=== PATIENT | female | born 1960 | race Caucasian/White ===

== ENCOUNTER 2016-12-19 19:33 | Observation (INO) | payer OTHER ==
[~2016-12-19] VITALS: Ht 165.1 cm; Wt 75.0 kg
[~2016-12-19 19:33] MED LIST: IBUP600T26 PO; PERC5TAB12 PO; ZOFR4TAB3 SL
[2016-12-19 19:37] VITALS: BP 209/123; PULSE 93; RESP 18; TEMP 98.4; O2SAT 99
--- NOTE | 2016-12-19 19:42 | PD ---
Physical Exam Time Seen by Provider: 19:40 Narrative 56 y/o female here for evaluation of jaw tightness, chest tightness 30 min lpta at work. She checked her BP and noted hypertension. Vital signs reviewed. Seen at triage desk. Awaiting bed placement. Data Data Last Documented VS Vital Signs Date Time Temp Pulse Resp B/P Pulse Ox O2 Delivery O2 Flow Rate FiO2 12/19/16 19:37 98.4 93 18 209/123 99 Room Air [facility] Medical Record Reviewed: Yes Supervised Visit with KIA: No Troy Ratliff Dec 19, 2016 19:42
[2016-12-19 20:40] VITALS: O2SAT 96
[2016-12-19] MEDS ORDERED: CHOL100025 CHEW (20:40)
[2016-12-19] MEDS ORDERED: [UNRECOGNIZED DRUG - CODE] (20:40)
[2016-12-19] MEDS ORDERED: OMEG300C5 (20:40)
[2016-12-19] MEDS ORDERED: ASPIRIN 325 MG TAB PO ONE (20:45)
[2016-12-19] MEDS ORDERED: NITROGLYCERIN 0.4 MG SL 25 TABS/BTL SL ONE (20:45)
[2016-12-19] MEDS ORDERED: SODIUM CHLORIDE 0.9% FLUSH 10 ML FLUSH IVF PRN (20:45)
--- NOTE | 2016-12-19 20:53 | PD ---
HPI Chief Complaint: Chest Pain Time Seen by Provider: 20:50 Travel History International Travel<30 days: No Contact w/Intl Traveler<30days: No Traveled to known affect area: No History of Present Illness HPI 56-year-old female that presents to the ED for evaluation of chest pressure and jaw pain. Per patient she's had this for over 30 minutes before coming. She denies any history of heart disease. No history of any medical issues. She states that nothing seems to make it better or worse. Per patient she went to check her blood pressure and it was high for her. She states that the pain for the most part started on the left jaw and he wasn't severe but enough for her to notice it. Per patient the discomfort from the chest is more like a pressure and a sense of heaviness than actual pain. Per patient the discomfort is 3 out of 10. Per patient at the moment the pain seems to have been improving but she continues to have the pressure sensation of heaviness. She denies abdominal pain. No nausea or vomiting. No history of heart disease in the family. She does have a history of hypertension in the family. No high cholesterol. She did use to smoke. No recent travel. No estrogen use. Allergies to Biaxin and tetracycline. PFSH Past Medical History Diminished Hearing: No Kidney Stones: Yes Menopausal: Yes Past Surgical History Genitourinary Surgery: Yes (RENAL STENT, LITHOTRIPSY 2010) Other Surgery: Yes (PARATHYROID) Social History Alcohol Use: Yes Tobacco Use: No (quit 14 years ) Substance Use: No Allergies-Medications (Allergen,Severity, Reaction): Coded Allergies: Biaxin (Verified Allergy, Severe, THRUSH/MOUTH SORES, 12/19/16) Tetracycline (Verified Allergy, Severe, THRUSH/MOUTH SORES, 12/19/16) Reported Meds & Prescriptions Reported Meds & Active Scripts Active Reported Collagen Hydrolysate (Collagen Hydrolysate (Bovine)) 1 Pow Pow Fish Oil ([place]-3 Fatty Acids) 300 Mg Capsule 900 Vitamin D3 (Cholecalciferol) 1,000 Unit Chew 1,000 Units CHEW DAILY Review of Systems Except as stated in HPI: all other systems reviewed are Neg Physical Exam Narrative GENERAL: SKIN: Warm and dry. HEAD: Atraumatic. Normocephalic. EYES: Pupils equal and round. No scleral icterus. No injection or drainage. ENT: No nasal bleeding or discharge. Mucous membranes pink and moist. Tongue is midline. No uvula deviation. NECK: Trachea midline. No JVD. CARDIOVASCULAR: Regular rate and rhythm. No murmurs, S3, S4. No chest pain reproducible with touch. RESPIRATORY: No accessory muscle use. Clear to auscultation. Breath sounds equal bilaterally. GASTROINTESTINAL: Abdomen soft, non-tender, nondistended. Hepatic and splenic margins not palpable. MUSCULOSKELETAL: Extremities without clubbing, cyanosis, or edema. No obvious deformities. Full range of motion of the upper and lower extremities bilaterally. 2+ pulses bilaterally. NEUROLOGICAL: Awake and alert. No obvious cranial nerve deficits. Motor grossly within normal limits. Five out of 5 muscle strength in the arms and legs. Normal speech. PSYCHIATRIC: Appropriate mood and affect; insight and judgment normal. Data Data Last Documented VS Vital Signs Date Time Temp Pulse Resp B/P Pulse Ox O2 Delivery O2 Flow Rate FiO2 12/19/16 21:04 90 16 134/87 97 Room Air 12/19/16 19:37 98.4 Orders Electrocardiogram (12/19/16 ) Electrocardiogram (12/19/16 20:38) Basic Metabolic Panel (Bmp) (12/19/16 20:38) Ckmb (Isoenzyme) Profile (12/19/16 20:38) Complete Blood Count With Diff (12/19/16 20:38) Magnesium (Mg) (12/19/16 20:38) Prothrombin Time / Inr (Pt) (12/19/16 20:38) Act Partial Throm Time (Ptt) (12/19/16 20:38) Troponin I (12/19/16 20:38) Lipase (12/19/16 20:38) Chest, Single Ap (12/19/16 20:38) Ecg Monitoring (12/19/16 20:38) Bilateral Bp Monitoring (12/19/16 20:38) Iv Access Insert/Monitor (12/19/16 20:38) Oximetry (12/19/16 20:38) Oxygen Administration (12/19/16 20:38) Aspirin (Aspirin) (12/19/16 20:45) Sodium Chloride 0.9% Flush (Ns Flush) (12/19/16 20:45) Nitroglycerin Sl (Nitrostat Sl) (12/19/16 20:45) Admit Order (Ed Use Only) (12/19/16 22:18) Activity Bed Rest With Brp (12/19/16 22:19) Vital Signs (Adult) Q4H (12/19/16 22:19) Cardiac Rhythm .As Directed (12/19/16 22:19) Notify Dr: Other .PRN (12/19/16 22:19) Notify DrRah Parameters (12/19/16 22:19) Resp Oxygen Nasal Cannula (12/19/16 ) Ckmb (Isoenzyme) Profile (12/19/16 23:49) Ckmb (Isoenzyme) Profile (12/20/16 02:49) Troponin I (12/19/16 23:49) Troponin I (12/20/16 02:49) Electrocardiogram (12/19/16 23:49) Electrocardiogram (12/20/16 02:49) ^ Obtain (12/19/16 22:19) Sodium Chloride 0.9% Flush (Ns Flush) (12/19/16 22:30) Sodium Chloride 0.9% Flush (Ns Flush) (12/20/16 09:00) Acetaminophen (Tylenol) (12/19/16 22:30) Tunnel Heading Inspector / Telemetry KELSI.Q8H (12/19/16 22:19) Labs Laboratory Tests Test 12/19/16 20:49 White Blood Count 6.2 TH/MM3 Red Blood Count 4.55 MIL/MM3 Hemoglobin 13.7 GM/DL Hematocrit 41.7 % Mean Corpuscular Volume 91.6 FL Mean Corpuscular Hemoglobin 30.1 PG Mean Corpuscular Hemoglobin 32.8 % Concent Red Cell Distribution Width 14.0 % Platelet Count 218 TH/MM3 Mean Platelet Volume 8.5 FL Neutrophils (%) (Auto) 44.1 % Lymphocytes (%) (Auto) 46.8 % Monocytes (%) (Auto) 7.3 % Eosinophils (%) (Auto) 1.2 % Basophils (%) (Auto) 0.6 % Neutrophils # (Auto) 2.7 TH/MM3 Lymphocytes # (Auto) 2.9 TH/MM3 Monocytes # (Auto) 0.5 TH/MM3 Eosinophils # (Auto) 0.1 TH/MM3 Basophils # (Auto) 0.0 TH/MM3 CBC Comment DIFF FINAL Differential Comment Prothrombin Time 10.6 SEC Prothromb Time International 1.0 RATIO Ratio Activated Partial 25.9 SEC Thromboplast Time Sodium Level 139 MEQ/L Potassium Level 3.9 MEQ/L Chloride Level 107 MEQ/L Carbon Dioxide Level 23.9 MEQ/L Anion Gap 8 MEQ/L Blood Urea Nitrogen 21 MG/DL Creatinine 0.83 MG/DL Estimat Glomerular Filtration 71 ML/MIN Rate Random Glucose 90 MG/DL Calcium Level 9.2 MG/DL Magnesium Level 2.4 MG/DL Total Creatine Kinase 69 U/L Troponin I LESS THAN 0.02 NG/ML Lipase 145 U/L MDM Medical Decision Making Medical Screen Exam Complete: Yes Emergency Medical Condition: Yes Medical Record Reviewed: Yes Interpretation(s) CBC & BMP Diagram 12/19/16 20:49 EKG shows sinus rhythm with no sign of acute ischemia or arrhythmia. Read by me and attending. Troponin and CK-MB negative. Lipase negative. Chest x-ray negative for acute disease. Differential Diagnosis Chest pain versus atypical chest pain versus ACS versus pancreatitis versus angina versus hypertensive emergency Narrative Course 56-year-old female that presents to the ED for evaluation of chest pain. Patient was properly examined and was found to have signs and symptoms concerning for cardiac chest pain. Labs and imaging were ordered. Initial EKG shows sinus rhythm with no sign of acute ischemia or arrhythmia rhythm by me and attending. Patient will be given aspirin as well as nitroglycerin. Labs and imaging showed no sign of acute disease. Patient was reassured. Patient did have relief with nitroglycerin. Patient does have risk factors including age and hypertension. At this time I recommend admission for chest pain center. Patient agrees with this plan. Patient was admitted to the chest pain center. Diagnosis Primary Impression: Chest pain in adult Admitting Information Admitting Physician Requests: Observation Derrek Quintanilla Dec 19, 2016 20:53
[2016-12-19 21:04] VITALS: BP 134/87; PULSE 90; RESP 16; O2SAT 97
--- NOTE | 2016-12-19 21:17 | RADRPT ---
EXAM DATE/TIME: 12/19/2016 20:46 [facility] COMPARISON: No previous studies available for comparison. INDICATIONS : Patient has had chest pain since this evening. MEDICAL HISTORY : None. SURGICAL HISTORY : None. ENCOUNTER: Initial ACUITY: 1 day PAIN SCORE: 4/10 LOCATION: Bilateral chest FINDINGS: A single view of the chest demonstrates the lungs to be symmetrically aerated without evidence of mas s, infiltrate or effusion. Minimal basal atelectasis. The cardiomediastinal contours are unremarkable . Osseous structures are intact. CONCLUSION: 1. Minimal basal atelectasis or scarring. No effusion or pneumothorax. Kishan Chang MD on December 19, 2016 at 21:14 Board Certified Radiologist. This report was verified electronically.
[2016-12-19 21:23] LABS: AUTOMATED NEUTROPHIL # 2.7 TH/MM3 (1.8-7.7); BASOPHIL % 0.6 % (0.0-2.0); EOSINOPHIL # 0.1 TH/MM3 (0-0.4); EOSINOPHIL % 1.2 % (0.0-4.0); HEMATOCRIT 41.7 % (35.0-46.0); HEMO FLAGS DIFF FINAL; LYMPH % 46.8 % (9.0-44.0); LYMPHOCYTE # 2.9 TH/MM3 (1.0-4.8); MEAN CELL VOLUME 91.6 FL (80.0-100.0); MEAN CORPUSCULAR HEMOGLOBIN 30.1 PG (27.0-34.0); MEAN CORPUSCULAR HGB CONC 32.8 % (32.0-36.0); MONO % 7.3 % (0.0-8.0); NEUT % 44.1 % (16.0-70.0); PLATELET COUNT 218 TH/MM3 (150-450); RED BLOOD COUNT 4.55 MIL/MM3 (4.00-5.30); WHITE BLOOD COUNT 6.2 TH/MM3 (4.0-11.0)
[2016-12-19 21:38] LABS: APTT (PATIENT) 25.9 SEC (24.3-30.1); PROTHROMBIN TIME - PATIENT 10.6 SEC (9.8-11.6)
--- NOTE | 2016-12-19 21:45 | EKG ---
Date Performed: 12/19/2016 Time Performed: 20:01:38 PTAGE: 56 years EKG: Sinus rhythm WITH SINUS ARRHYTHMIA Cannot rule out INFERIOR MYOCARDIAL INFARCTION Borderline ECG DOCTOR: Jose Raul Angel Interpretating Date/Time 12/23/2016 06:56:38
[2016-12-19 21:55] LABS: ANION GAP 8 MEQ/L (5-15); BICARBONATE 23.9 MEQ/L (21.0-32.0); BLOOD UREA NITROGEN 21 MG/DL (7-18); CHLORIDE 107 MEQ/L (98-107); GLOMERULAR FILTRATION RATE 71 ML/MIN (>89); MAGNESIUM 2.4 MG/DL (1.5-2.5); POTASSIUM 3.9 MEQ/L (3.5-5.1); SODIUM (NA) 139 MEQ/L (136-145)
[2016-12-19 22:12] LABS: CREATINE KINASE 69 U/L (26-192)
[2016-12-19] MEDS ORDERED: ACETAMINOPHEN 500 MG CPLT PO PRN (22:30)
[2016-12-19] MEDS ORDERED: SODIUM CHLORIDE 0.9% FLUSH 10 ML FLUSH IV FLUSH PRN (22:30)
[2016-12-19 23:00] VITALS: O2SAT 97
[2016-12-19 23:35] VITALS: BP 147/95; PULSE 88; RESP 18; TEMP 97.4; O2SAT 98
[2016-12-20 00:37] LABS: CREATINE KINASE 54 U/L (26-192)
[2016-12-20 00:53] VITALS: PULSE 77
[2016-12-20 02:52] VITALS: BP 124/83; PULSE 71; RESP 18; TEMP 98.2; O2SAT 95
[2016-12-20 04:08] LABS: CREATINE KINASE 69 U/L (26-192)
[2016-12-20 04:15] VITALS: PULSE 79
[2016-12-20 07:43] VITALS: BP 133/87; PULSE 70; RESP 16; TEMP 97.8; O2SAT 97
--- NOTE | 2016-12-20 07:51 | HHI.HP ---
HPI Primary Care Physician Barak Echavarria MD Chief Complaint Chest pain History of Present Illness 56-year-old female with no significant medical history presents to emergency room for further evaluation of chest pain. Onset 7 PM while at work when she developed bilateral jaw pain characterized as "tight and painful." After a couple of minutes, developed bilateral chest discomfort under her breasts described as indigestion. No associated symptoms of nausea, vomiting, diaphoresis, or shortness of breath. She is unsure of duration of episode although with certain did not last longer than 30 minutes. No particular movement, position, or breathing made pain better or worse. No known precipitating or relieving factors. Denies similar pain in the past. Works at [employer] and took her blood pressure during event, noting her systolic blood pressure to be [id number] and her diastolic [id number]. Remote history of hypertension after her father's many years ago, states she was taken off blood pressure medication after losing weight and increasing her daily activity. Review of Systems General: No fatigue,weakness, fever, chills, recent illness, or change in appetite. Has been in her general state of health. Endorses decreasing her gym activity from 5 days weekly to not attending the gym in over 2 months. HEENT: No DUPREE, no vision changes CV: As stated above. No current chest pain or pressure. No palpitations, intermittent leg pain, or dizziness. RESP: No SOB, cough, wheeze, or history of asthma. GI: No nausea, vomiting, bowel changes, diarrhea, constipation, pain, distention , melena, or blood in the stool. : No dysuria, urgency, or frequency. History of kidney stones EXT: No lower leg edema, no paraesthesias. MS: No discomfort or change in ROM NEURO: No difficulty with balance, LOC, motor/sensory deficits PSYCH: No anxiety, depression, or suicidal ideation SKIN: No rashes, no concerning lesions Past Family Social History Allergies: Coded Allergies: Biaxin (Verified Allergy, Severe, THRUSH/MOUTH SORES, 12/19/16) Tetracycline (Verified Allergy, Severe, THRUSH/MOUTH SORES, 12/19/16) Past Medical History Kidney stones, renal stent Past Surgical History Parathyroidectomy Reported Medications Active Reported Collagen Hydrolysate (Collagen Hydrolysate (Bovine)) 1 Pow Pow Fish Oil ([place]-3 Fatty Acids) 300 Mg Capsule 900 Vitamin D3 (Cholecalciferol) 1,000 Unit Chew 1,000 Units CHEW DAILY Active Ordered Medications Current Medications Medications (Trade) Dose Ordered Sig/[place] Route Start Time Stop Time Status Last Admin (NS Flush) 2 ml BID IV FLUSH 12/20/16 09:00 (Tylenol) 500 mg Q4H PRN PO 12/19/16 22:30 Family History Noncontributory for early onset cardiovascular disease. Social History No known diabetes, hypertension, or hyperlipidemia. Quit smoking 14 years ago. Prior to quitting smoking one pack/daily. Endorses a rare alcoholic beverage. Denies any illegal drug use. Endorses a healthy eating and active lifestyle. Due to current job situation, recently decreased her daily gym activity. Past cardiac testing None Physical Exam Vital Signs Vital Signs Date Time Temp Pulse Resp B/P Pulse Ox O2 Delivery O2 Flow Rate FiO2 12/20/16 07:43 97.8 70 16 133/87 97 12/20/16 04:15 79 12/20/16 02:52 98.2 71 18 124/83 95 12/20/16 00:53 77 12/19/16 23:35 97.4 88 18 147/95 98 12/19/16 23:00 97 12/19/16 21:04 90 16 134/87 97 Room Air 12/19/16 20:40 96 Room Air 12/19/16 20:40 96 Room Air 12/19/16 19:37 98.4 93 18 209/123 99 Room Air Physical Exam GENERAL: Alert WN, WD, NAD, pleasant, female HEAD: NC, AT NECK: Supple, no masses, trachea midline CV: RRR, without murmur, rub, gallop, no JVD, S1-S2 no S3-S4. N RESP: Clear lungs throughout bilateral, no crackles, wheeze, rhonchi, symmetrical chest rise, nonlabored, able to speak in full sentences ABD: Soft, NT, ND, no masses, positive bowel tones EXT: Pulses +24, no dependent edema MS: Normal tone 4 extremities, nontender, no obvious deformities, full range of motion NEURO: CN II through CN XII grossly intact, motor strength 5/5, gait WNL PSYCH: A+O 3, pleasant affect, appropriate speech, appropriate mood and affect , insight and judgment SKIN: Normal turgor, normal texture, no lesions, no rashes, brisk cap refill, even hair distribution Laboratory Laboratory Tests Test 12/19/16 12/19/16 12/20/16 20:49 23:45 02:54 White Blood Count 6.2 Red Blood Count 4.55 Hemoglobin 13.7 Hematocrit 41.7 Mean Corpuscular Volume 91.6 Mean Corpuscular Hemoglobin 30.1 Mean Corpuscular Hemoglobin 32.8 Concent Red Cell Distribution Width 14.0 Platelet Count 218 Mean Platelet Volume 8.5 Neutrophils (%) (Auto) 44.1 Lymphocytes (%) (Auto) 46.8 Monocytes (%) (Auto) 7.3 Eosinophils (%) (Auto) 1.2 Basophils (%) (Auto) 0.6 Neutrophils # (Auto) 2.7 Lymphocytes # (Auto) 2.9 Monocytes # (Auto) 0.5 Eosinophils # (Auto) 0.1 Basophils # (Auto) 0.0 CBC Comment DIFF FINAL Differential Comment Prothrombin Time 10.6 Prothromb Time International 1.0 Ratio Activated Partial 25.9 Thromboplast Time Sodium Level 139 Potassium Level 3.9 Chloride Level 107 Carbon Dioxide Level 23.9 Anion Gap 8 Blood Urea Nitrogen 21 Creatinine 0.83 Estimat Glomerular Filtration 71 Rate Random Glucose 90 Calcium Level 9.2 Magnesium Level 2.4 Total Creatine Kinase 69 54 69 Troponin I LESS THAN 0.02 LESS THAN 0.02 LESS THAN 0.02 Lipase 145 Result Diagram: 12/19/16204812/19/162048 Imaging Last Impressions Chest X-Ray 12/19/162037 Signed Impressions: Service Date/Time: November 20:46 - CONCLUSION: 1. Minimal basal atelectasis or scarring. No effusion or pneumothorax. Kishan Chang MD Course EKG Normal sinus rhythm, Q waves in leads III and AVF, no ST or T-segment changes Assessment and Plan Assessment and Plan #1 Chest painadmitted to chest pain center. Ruled out with 3 sets of EKGs, cardiac enzymes, and monitored overnight. Seen and evaluated by Dr. Kimberly Guevara. Will proceed with exercise treadmill stress test. Naturally if unremarkable, will discharge later this morning with follow-up with her PCP. Patient is agreeable plan of care. #2 Hypertensioninitially patient hypertensive, normotensive otherwise. Encouraged to keep a blood pressure log and take with her to her next primary care appointment. Follow a low sodium diet and return to purposeful daily exercise. Ai Robledo Dec 20, 2016 07:51
[2016-12-20] MEDS ORDERED: SODIUM CHLORIDE 0.9% FLUSH 10 ML FLUSH IV FLUSH SCH (09:00)
[2016-12-20 10:26] VITALS: PULSE 82
--- NOTE | 2016-12-20 10:39 | HHI.DCPOC ---
Discharge Care Plan Diagnosis: (1) Atypical chest pain (2) Hypertension Goals to Promote Your Health * To prevent worsening of your condition and complications * To maintain your health at the optimal level Directions to Meet Your Goals Take your medications as prescribed Follow your dietary instruction Follow activity as directed Keep your appointments as scheduled Take your immunizations and boosters as scheduled If your symptoms worsen call your PCP, if no PCP go to Urgent Care Center or Emergency Room Smoking is Dangerous to Your Health. Avoid second hand smoke Call the 24-hour hour crisis hotline for domestic abuse at Ai Robledo Dec 20, 2016 10:39
--- NOTE | 2016-12-20 16:14 | TR ---
Date Performed: 12/20/2016 Time Performed: 09:56:45 DOCTOR: Kimberly Guevara DRUG LIST: CLINICAL HISTORY: REASON FOR TEST: Chest pain REASON FOR ENDING: OBSERVATION: CONCLUSION: Rashaad protocol completed. Stopped sec to exceeding target heart rate.Maximum NG=820 Target HR Achieved=95.0% Maximum DF=518/94 Total Exercise Time=7:01. No reprod chest pain or discomfo rt. No st depression to sugg ischemia. Good exercise tolerance. Normal bp response. Recovery quick an d unremarkable. COMMENTS:
--- NOTE | 2016-12-20 16:17 | EKG ---
Date Performed: 12/20/2016 Time Performed: 02:49:26 PTAGE: 56 years EKG: Sinus rhythm NORMAL ECG Since PREVIOUS TRACING , no significant change noted PREVIOUS TRACIN12/20/2016 00.10 DOCTOR: Kimberly Guevara Interpretating Date/Time 12/20/2016 16:15:36
--- NOTE | 2016-12-20 16:17 | EKG ---
Date Performed: 12/20/2016 Time Performed: 00:10:19 PTAGE: 56 years EKG: Sinus rhythm NORMAL ECG Since PREVIOUS TRACING , no significant change noted PREVIOUS TRACIN12/19/2016 20.01 DOCTOR: Kimberly Guevara Interpretating Date/Time 12/20/2016 16:16:36
== END 2016-12-20 12:07 | disposition home or self-care (01) ==
LOC: NEPE 19:33 → NEDA 22:20 → NEPFCDU 23:14
PROVIDERS: ADMIT Internal Medicine Interventional Cardiology; ATTEND Internal Medicine Interventional Cardiology
DX: R07.89 Other chest pain (principal); R68.84 Jaw pain; I49.8 Other specified cardiac arrhythmias; I10 Essential (primary) hypertension; Z87.891 Personal history of nicotine dependence
CPT/HCPCS: 71010; 80048; 82550; 83690; 83735; 84484; 85025; 85610; 85730; 93005; 93017; 99285; G0378